=== PATIENT | male | born 1965 | race African-American/Black ===

== ENCOUNTER 2016-12-08 09:36 | Emergency (ER) | payer SELFPAY ==
[~2016-12-08] VITALS: Ht 165.1 cm; Wt 73.9 kg
[~2016-12-08 09:36] MED LIST: BENA20TA2 PO; CYCL10TA2 PO; FENO145T PO; GABA-586 PO; HYDR25TA9 PO; NORT25CA PO; TERA10CA3 PO
[2016-12-08 11:02] VITALS: BP 178/93
--- NOTE | 2016-12-08 12:17 | PHYS DOC ---
Past Medical History Past Medical History: Arthritis, Hypertension Past Surgical History: No Surgical History Alcohol Use: Heavy Additional Information: 4-6 pack daily Drug Use: Marijuana Adult General Chief Complaint Chief Complaint: HIP PAIN HPI HPI Patient is a 51 year old male presents emergency Department with complaint of progressive right hip pain over the past several months that is now causing him to have much more increased pain with bearing weight and walking. Patient denies any history of injuries to the right hip. He denies any known history of bone forming disorders or inflammatory arthritide's. Review of Systems Review of Systems Constitutional: Denies fever or chills [] Eyes: Denies change in visual acuity, redness, or eye pain [] HENT: Denies nasal congestion or sore throat [] Respiratory: Denies cough or shortness of breath [] Cardiovascular: No additional information not addressed in HPI [] GI: Denies abdominal pain, nausea, vomiting, bloody stools or diarrhea [] : Denies dysuria or hematuria [] Musculoskeletal: Denies back pain or joint pain [] Integument: Denies rash or skin lesions [] Neurologic: Denies headache, focal weakness or sensory changes [] Endocrine: Denies polyuria or polydipsia [] Allergies Allergies Allergies Coded Allergies Type Severity Reaction Last Updated Verified No Known Drug Allergies 12/07/13 No Physical Exam Physical Exam Constitutional: Well developed, well nourished, no acute distress, non-toxic appearance. [] HENT: Normocephalic, atraumatic, bilateral external ears normal, oropharynx moist, no oral exudates, nose normal. [] Eyes: PERRLA, EOMI, conjunctiva normal, no discharge. [] Neck: Normal range of motion, no tenderness, supple, no stridor. [] Cardiovascular:Heart rate regular rhythm, no murmur [] Lungs & Thorax: Bilateral breath sounds clear to auscultation [] Abdomen: Bowel sounds normal, soft, no tenderness, no masses, no pulsatile masses. [] Skin: Warm, dry, no erythema, no rash. [] Back: No tenderness, no CVA tenderness. [] Extremities: Right hip is normal in appearance. There is tenderness to palpation to the anterior lateral and posterior lateral portions of right hip without any palpable defect, deformity or spasm. Patient is able to flex at the hip. Circumduction is also performed with mild crepitation to the hip. There is no laxity to the hip joint. Right lower extremity is neurovascular intact with capillary refill less than 2 seconds. Focal deficits noted. [] Psychologic: Affect normal, judgement normal, mood normal. [] Current Patient Data Vital Signs Vital Signs Date Time Temp Pulse Resp B/P Pulse Ox O2 Delivery O2 Flow Rate FiO2 12/08/16 11:02 98.0 77 18 178/93 98 Room Air 98.0 EKG EKG [] Radiology/Procedures Radiology/Procedures [facility] [address] [place] [address] IMAGING REPORT Signed PATIENT: AFTAB KELLER ACCOUNT: [id number] : 1965 LOCATION: ER AGE: 51 SEX: M EXAM STATUS: REG ER ORD. PHYSICIAN: PATTIE HAYES REASON: progressive, atraumatic pain D PROCEDURE: HIP RIGHT 1 VIEW WITH PELVIS Pelvis with right hip, 2 views, 12/08/2016: History: Pain No fracture or dislocation is identified. There is mild narrowing of both hip joints with moderate marginal spurring. Moderate aortoiliac and femoral vascular calcifications are present. IMPRESSION: 1. Mild degenerative change at both hip joints. 2. No acute bony abnormality is detected. DICTATED and SIGNED BY: DAYAMI SQUIRES MD DATE: 12/08/16 1224 CC: PATTIE HAYES; NO PCP; NON,STAFF ~ Course & Med Decision Making Course & Med Decision Making Pertinent Labs and Imaging studies reviewed. (See chart for details) [] Dragon Disclaimer Dragon Disclaimer This electronic medical record was generated, in whole or in part, using a voice recognition dictation system. Departure Departure Impression: Primary Impression: Degenerative joint disease Additional Impression: Hip pain Disposition: HOME, SELF-CARE Condition: GOOD Referrals: NO PCP (PCP) Patient Instructions: Arthritis, Degenerative-Brief, Hip Pain Additional Instructions: 1. The x-rays of your pelvis and right hip today show arthritis. 2. Review the discharge instructions provided for self-care and reasons to return to the emergency department. 3. Take the medication as prescribed help with pain management. 4. Use the pamphlet provided for assistance in finding a primary care doctor to address your medical concerns. Scripts Tramadol Hcl/Acetaminophen (Tramadol-Acetaminophn 37.5-325)1 Each Tablet1 Tab PO Q6H PAIN #15 TAB Ref 0 Prov:PATTIE HAYES 12/08/16 Problem Qualifiers PATTIE HAYES Dec 08, 2016 12:17
--- NOTE | 2016-12-08 12:28 | RAD ---
Pelvis with right hip, 2 views, 12/08/2016: History: Pain No fracture or dislocation is identified. There is mild narrowing of both hip joints with moderate marginal spurring. Moderate aortoiliac and femoral vascular calcifications are present. IMPRESSION: 1. Mild degenerative change at both hip joints. 2. No acute bony abnormality is detected.
[2016-12-08] MEDS ORDERED: TRAM1TAB4 PO (12:35)
== END 2016-12-08 12:40 | disposition home or self-care (01) ==
LOC: ER 09:36
DX: M16.11 Unilateral primary osteoarthritis, right hip (principal); F12.10 Cannabis abuse, uncomplicated; F10.10 Alcohol abuse, uncomplicated; I10 Essential (primary) hypertension; F17.200 Nicotine dependence, unspecified, uncomplicated
CPT/HCPCS: 73501; 73502; 99284

== ENCOUNTER 2018-06-13 09:42 | Emergency (ER) | payer SELFPAY ==
[~2018-06-13] VITALS: Ht 165.1 cm; Wt 73.9 kg
[~2018-06-13 09:42] MED LIST changes: -BENA20TA2 PO; +BENA20TA4 PO; +TRAM1TAB4 PO
[2018-06-13 10:23] VITALS: BP 175/87
[2018-06-13] MEDS ORDERED: TRAM50TA PO (10:36)
[2018-06-13] MEDS ORDERED: SULF1TAB24 PO (10:36)
--- NOTE | 2018-06-13 10:36 | PHYS DOC ---
Past Medical History Past Medical History: Arthritis, Hypertension Past Surgical History: No Surgical History Alcohol Use: Heavy Additional Information: 4-6 BEERS A DAY Drug Use: Marijuana Adult General Chief Complaint Chief Complaint: LOWER EXT PAIN HPI HPI Patient is a 52 year old male who presents with redness, swelling and tenderness to his right lower leg. Patient reports this started about 2 days ago. There is a small pustule at the center of this. He denies any knowledge of being bit by an insect. Additionally, patient has exacerbation of chronic joint and hip pain. He denies new injury. Review of Systems Review of Systems Constitutional: Denies fever or chills [] Eyes: Denies change in visual acuity, redness, or eye pain [] HENT: Denies nasal congestion or sore throat [] Respiratory: Denies cough or shortness of breath [] Cardiovascular: No additional information not addressed in HPI [] GI: Denies abdominal pain, nausea, vomiting, bloody stools or diarrhea [] : Denies dysuria or hematuria [] Musculoskeletal: Denies back pain or joint pain [] Integument: Denies rash or skin lesions [] Neurologic: Denies headache, focal weakness or sensory changes [] Endocrine: Denies polyuria or polydipsia [] All other systems were reviewed and found to be within normal limits, except as documented in this note. Current Medications Current Medications Current Medications Medications (Trade) Dose Ordered Sig/Darlin Start Time Stop Time Status Last Admin Dose Admin Tramadol HCl (Ultram) 100 mg 1X ONCE 06/13/18 10:45 06/13/18 10:46 DC 06/13/18 10:50 100 MG Allergies Allergies Allergies Coded Allergies Type Severity Reaction Last Updated Verified No Known Drug Allergies 12/07/13 No Physical Exam Physical Exam Constitutional: Well developed, well nourished, no acute distress, non-toxic appearance. [] HENT: Normocephalic, atraumatic Eyes: PERRLA, EOMI, conjunctiva normal, no discharge. [] Neck: Normal range of motion, no tenderness, supple, no stridor. [] Lungs & Thorax: No increased work of breathing Skin: Warm, dry, erythema, warmth and streaking to medial aspect of left lower leg Back: Diffuse tenderness, chronic in nature Extremities: Diffuse tenderness, chronic in nature. Neurologic: Alert and oriented X 3, normal motor function, normal sensory function, no focal deficits noted. [] Psychologic: Affect normal, judgement normal, mood normal. [] Current Patient Data Vital Signs Vital Signs Date Time Temp Pulse Resp B/P (MAP) Pulse Ox O2 Delivery O2 Flow Rate FiO2 06/13/18 10:23 97.2 70 20 175/87 (116) 98 Room Air 97.2 EKG EKG [] Radiology/Procedures Radiology/Procedures [] Course & Med Decision Making Course & Med Decision Making Pertinent Labs and Imaging studies reviewed. (See chart for details) There is no fluctuance to the area or induration. There is an area that looks like it may have been the site of a bite. Warm to touch with streaking, will start patient on antibiotics, elevate the leg and close follow-up. Plan: Keflex Rx, elevate the leg, tramadol Rx, follow-up with PCP, return precautions reviewed[] Dragon Disclaimer Dragon Disclaimer This electronic medical record was generated, in whole or in part, using a voice recognition dictation system. Departure Departure Impression: Primary Impression: Degenerative joint disease Additional Impressions: Hip pain Cellulitis Disposition: 01 HOME, SELF-CARE Condition: GOOD Referrals: NO PCP (PCP) Patient Instructions: Cellulitis Scripts Tramadol Hcl (TRAMADOL HCL) 50 Mg Tablet 50-100 MG PO Q6HRS PRN for PAIN, #30 TAB Prov: MAGALY MELTON APRN 06/13/18 Sulfamethoxazole/Trimethoprim (BACTRIM DS TABLET) 1 Each Tablet 1 TAB PO BID for 7 Days, #14 TAB Prov: MAGALY MELTON APRN 06/13/18 Problem Qualifiers Primary Impression: Degenerative joint disease Osteoarthritis location: unspecified site Osteoarthritis type: unspecified Qualified Codes: M19.90 - Unspecified osteoarthritis, unspecified site Additional Impressions: Hip pain Laterality: bilateral Qualified Codes: M25.551 - Pain in right hip; M25.552 - Pain in left hip Cellulitis Site of cellulitis: extremity Site of cellulitis of extremity: lower extremity Laterality: left Qualified Codes: L03.116 - Cellulitis of left lower limb MAGALY MELTON APRN Jun 13, 2018 10:36
[2018-06-13] MEDS ORDERED: traMADol 50 MG TABLET PO ONE (10:45)
== END 2018-06-13 10:52 | disposition home or self-care (01) ==
LOC: ER 09:42
DX: L03.116 Cellulitis of left lower limb (principal); M19.90 Unspecified osteoarthritis, unspecified site; M25.551 Pain in right hip; M25.552 Pain in left hip; I10 Essential (primary) hypertension; F10.20 Alcohol dependence, uncomplicated; Y90.9 Presence of alcohol in blood, level not specified
CPT/HCPCS: 99283